=== PATIENT | male | born 1980 | race Caucasian/White ===

== ENCOUNTER 2021-05-05 02:45 | Emergency (ER) | payer MEDICAID, OTHER ==
[~2021-05-05] VITALS: Ht 180.3 cm; Wt 75.0 kg
[~2021-05-05 02:45] MED LIST: DEXT5TAB15 PO
[2021-05-05 02:55] VITALS: BP 133/98
[2021-05-05] MEDS ORDERED: KETOROLAC 60MG/2ML VIAL IM STA (03:23)
== END 2021-05-05 04:08 | disposition home or self-care (01) ==
LOC: ER 02:45
DX: S92.902D Unspecified fracture of left foot, subsequent encounter for fracture with routine healing (principal); M79.672 Pain in left foot; Z88.0 Allergy status to penicillin; Z98.890 Other specified postprocedural states; Z79.899 Other long term (current) drug therapy; X58.XXXD Exposure to other specified factors, subsequent encounter
CPT/HCPCS: 99283